=== PATIENT | male | born 1990 | race Caucasian/White ===

== ENCOUNTER 2024-01-18 21:44 | Emergency (ER) | payer OTHER, SELFPAY ==
[2024-01-18 21:55] VITALS: BP 128/85
[2024-01-18 22:21] LABS: % Basophils 0.5 % (0-2); % Eosinophils 3.7 % (0-6); % Immature Granulocytes 0.1 % (0-0.5); % Monocytes 9.1 % (1.7-9.3); % Neutrophils 66.6 % (42.2-75.2); Absolute Eosinophils 0.3 10^3/uL (0-0.7); Absolute Lymphocytes 1.7 10^3/uL (1.2-3.4); Absolute Monocytes 0.8 10^3/uL (0.1-0.6); Absolute Neutrophils 5.5 10^3/uL (1.4-6.5); Hematocrit 40.8 % (39.0-52.0); Hemoglobin 14.1 g/dL (13.0-18.0); Mean Corp Hgb Conc. 34.6 g/dL (33.0-37.0); Mean Corpuscular Hgb 29.6 pg (27.0-31.0); Mean Corpuscular Volume 85.7 fL (80.0-94.0); Mean Platelet Volume 9.8 fL (7.4-10.4); Nucleated Red Blood Cells % 0 % (-); Platelet Count 173 10^3/uL (130-400); Red Blood Cell Count 4.76 10^6/uL (4.70-6.10); White Blood Cell Count 8.3 10^3/uL (4.8-10.8)
[2024-01-18 22:34] LABS: ALT (SGPT) 30 U/L (0-50); AST (SGOT) 35 U/L (17-59); Albumin 4.4 g/dl (3.5-5.0); Alkaline Phosphatase 75 U/L (38-126); Blood Urea Nitrogen 32 mg/dl (9-20); Calcium 9.8 mg/dl (8.4-10.2); Carbon Dioxide 25 mmol/L (22-30); Chloride 103 mmol/L (98-107); Glucose 107 mg/dl (70-99); Potassium 3.9 mmol/L (3.5-5.1); Sodium 137 mmol/L (135-145); Total Bilirubin 0.5 mg/dl (0.2-1.3); eGFR > 60.00
[2024-01-18 22:36] LABS: Total Protein 7.3 g/dl (6.3-8.2)
[2024-01-18 23:04] LABS: TSH Reflex To Free T4 4.32 uIU/ml (0.47-4.68)
[2024-01-18 23:07] VITALS: BP 120/77
[2024-01-19] VITALS: BP 106/74
--- NOTE | 2024-01-19 00:23 | ED.GENMED ---
History of Present Illness
<MIRIAM Milan - Last Filed: 01/19/24 02:00>
General
Chief Complaint: Heart Rate Problem
Source: patient
Exam Limitations: none
Time Seen by Provider: 01/19/24 00:12
Nursing documentation reviewed up to this point in time: agreed with
Travel History
Have you had any contact with someone who has COVID-19?: No
Do you have any symptoms of coronavirus? Fever > 100 degrees, chills, cough, shortness of breath, sore throat, loss of taste or smell, muscle aches, or headache?: No
History of Present Illness
History of Present Illness:
This is a 33 year old male with no significant PMH who presents to the ED c/o his heart racing x couple hours. Pt states he was sitting down eating dinner when he felt like his heart was racing. When he checked, his heart rate was ranging between
140-160 bpm. Pt states the feeling lasted for about 25 minutes before resolving for 10 minutes and then starting again. He states his heart kept racing intermittently for a couple of hours before resolving 2 hours ago. He had one episode of sweating
as well. He has never felt like this before and denies any recent stressors or anxiety that would trigger it. He denies any CP, SOB, fever, chills, dizziness, lightheadedness, n/v, abdominal pain, sore throat, or congestion.
Pt drinks alcohol occasionally and denies any drug or tobacco use. He denies any alcohol consumption today. Pt denies any cardiac or thyroid history. He has a family hx of DM and HTN and denies any family hx of CAD.
Past History
<MIRIAM Milan - Last Filed: 01/19/24 02:00>
Past History
ED Past Medical History: None
ED Past Surgical History: None
Patient has exhibited threatening behavior?: No
Social History
Tobacco: Non-smoker
Alcohol: Occasional
Drug: None
Family History
Family History: Diabetes and Hypertension; Negative CAD
Review of Systems
<Kelly MIRIAM Lomas - Last Filed: 01/19/24 02:00>
Review of Systems
Allergies reviewed?: Yes
All Other Systems: ROS reviewed and negative except as documented in HPI and ROS
Constitutional: Reports no symptoms; Denies fever or chills
EENT: Reports no symptoms; Denies sore throat
Respiratory: Reports no symptoms; Denies trouble breathing
Cardiac: Reports diaphoresis and palpitations; Denies chest pain
ABD/GI: Reports no symptoms; Denies abdominal pain, nausea or vomiting
: Reports no symptoms
Musculoskeletal: Reports no symptoms
Skin: Reports no symptoms
Neurological: Reports no symptoms; Denies dizzy
Psychiatric: Reports no symptoms; Denies anxiety
Phy Exam
<MIRIAM Milan - Last Filed: 01/19/24 02:00>
General Physical Exam
General Presentation: well appearing, no apparent distress and other (patient is comfortable and resting in bed. HR is within normal range)
General age: appears stated age
General Skin: warm and dry
General Habitus: normal
General Mental: alert
General Hydration: appears well hydrated
ENT Exam
ENT Exam: pharynx normal, neck supple, normocephalic and swallowing well
Eye Exam
Eye Exam: PERRL
Cardiovascular Exam
Cardiovascular Exam: regular rate/rhythm, no edema, no murmur and normal peripheral pulses
Heart Sounds: normal
Pulmonary Exam
Pulmonary Exam: lungs clear, no respiratory distress, no rales, no crackles, no rhonchi, no wheezing and no cough
Gastrointestinal Exam
Gastrointestinal Exam: normal bowel sounds, non tender, soft and non distended
Neurological Exam
Neurological Exam: alert and oriented x3
Musculoskeletal Exam
Musculoskeletal Exam: full ROM and no edema
Skin Exam
Skin Exam: normal color and warm/dry
Psychiatric Exam
Psychiatric Exam: normal mood/affect
Course
<MIRIAM Milan - Last Filed: 01/19/24 02:00>
Orders/Labs/Results
Orders:
Orders
01/18/24 22:00
Electrocardiogram (*1) Urgent
Reason for Study: Tachycardia
EKG- Treatment ONCE
01/18/24 22:10
CMP [Comprehensive Metabolic Panel] Urgent
Complete Blood Count/With Diff Urgent
TSH Reflex To Free T4 Urgent
Abnormal Lab Results
01/18/24
22:10
Absolute Monos (auto) 0.8 H 10^3/uL
(0.1-0.6)
Lymphocytes % 20.0 L %
(20.5-51.1)
BUN 32 H mg/dl
(9-20)
Glucose 107 H mg/dl
(70-99)
01/18/24 22:10
01/18/24 22:10
Vital Signs
Initial and Last Documented VS:
Initial Vital Signs
Temp Pulse Resp BP Pulse Ox
98.7 F 91 18 128/85 99
01/18/24 21:55 01/18/24 21:55 01/18/24 21:55 01/18/24 21:55 01/18/24 21:55
Last Documented Vital Signs
Temp Pulse Resp BP Pulse Ox
98.7 F 67 17 112/72 97
01/18/24 21:55 01/19/24 01:30 01/19/24 01:30 01/19/24 01:00 01/19/24 01:30
<Sarkis Wilkerson DO - Last Filed: 01/19/24 01:53>
Orders/Labs/Results
Orders:
Orders
01/18/24 22:00
Electrocardiogram (*1) Urgent
Reason for Study: Tachycardia
EKG- Treatment ONCE
01/18/24 22:10
CMP [Comprehensive Metabolic Panel] Urgent
Complete Blood Count/With Diff Urgent
TSH Reflex To Free T4 Urgent
Abnormal Lab Results
01/18/24
22:10
Absolute Monos (auto) 0.8 H 10^3/uL
(0.1-0.6)
Lymphocytes % 20.0 L %
(20.5-51.1)
BUN 32 H mg/dl
(9-20)
Glucose 107 H mg/dl
(70-99)
01/18/24 22:10
01/18/24 22:10
Vital Signs
Initial and Last Documented VS:
Initial Vital Signs
Temp Pulse Resp BP Pulse Ox
98.7 F 91 18 128/85 99
01/18/24 21:55 01/18/24 21:55 01/18/24 21:55 01/18/24 21:55 01/18/24 21:55
Last Documented Vital Signs
Temp Pulse Resp BP Pulse Ox
98.7 F 67 17 112/72 97
01/18/24 21:55 01/19/24 01:30 01/19/24 01:30 01/19/24 01:00 01/19/24 01:30
<MIRIAM Milan - Last Filed: 01/19/24 02:00>
*Critical Care Note
Total Time (30-74mins, 75-104mins- exclusive of procedures): Not Applicable
ED Attending Note
<MIRIAM Milan - Last Filed: 01/19/24 02:00>
-
Portions of this chart may have been created with voice recognition software.� Occasional wrong word or��sound alike� substitutions may have occurred due to the inherent limitations of voice recognition software.
<DO Justo Menjivar Last Filed: 01/19/24 01:53>
ED Attending Note
Patient seen and examined by attending physician: Yes
I performed the substantive portion of visit, reviewed & personally made and approve the management plan that is documented in note by myself or KATHY.: Yes
ED Attending Note:
Pleasant 33-year-old male that presents with palpitations. He states that he has had palpitations in the past but today, approximately several hours prior to arrival he states that he felt his heart was racing. He states that his heart rate was
between 140 and 160 bpm. He reported several episodes lasting 25 minutes at a time. He states that this was different from previous palpitations. Patient works as a law enforcement officer. He denies any increased caffeine or decreased sleep. He reports
no dietary changes. He states that he is not under stress. He does not do drugs, drinks alcohol only sporadically and does not smoke. He denies chest pain. Patient was seen in conjunction with the PA student. I have reviewed and agree with the
history and treatment plan presented. On my independent physical exam, patient is awake, alert, and oriented x3, no acute distress. Heart is regular rate and rhythm without murmurs rubs or gallops present. Lungs are clear to auscultation
bilaterally without wheezes rales or rhonchi present. Moves all 4 extremities. Skin is warm and dry. Affect is normal. Patient is conversant. He does follow-up with a family doctor in [place].
Patient to be discharged home. Will follow-up with his family doctor. I will provide cardiology information should he want to follow-up with cards.
Discharge Plan
Departure
Patient Disposition: Home (Routine Discharge)
Date of Disposition: 01/19/24
Time of Disposition: 01:51
Patient with high blood pressure during this ER visit?: No
Condition: Good
Discharge Problem:
Palpitations
Instructions: Palpitations (DC)
Referrals:
[facility] [Provider Group] - As needed
Nael Og DO [Family Provider] -
Activity Restrictions/Additional Instructions:
It was a pleasure meeting you and taking part in your care. We hope for your continued healing and wellness.
Please read discharge instructions in their entirety. However, they are for general education and may not describe your exact diagnosis at discharge. Information on your ER visit and medical conditions were discussed with you along with appropriate
follow up information...
If indicated, please take your medications as instructed and indicated on discharge paperwork.
Please schedule a follow up appointment as directed. Call to schedule an appointment
Please return to the emergency department with ANY change in, persisting, or worsening of symptoms. If any of your symptoms do not improve, or persist, or become more severe within 6-12 hours, please return to the emergency department for further
care.
Please return to the emergency department if you develop a headache, neck pain/stiffness, fever greater than 100.4F, chest pain, shortness of breath, persistent nausea, vomiting, slurred speech, difficulty walking, numbness/tingling, weakness, signs
of infection or any other symptoms that are worrisome to you.
If you have any questions or concerns please do not hesitate to call the Hospital at or E-mail me directly at [email or web address]
Interventions
Interventions:
*Risk Screen - Suicide Last Done: 01/18/24 21:55
*General Assessment Last Done: 01/18/24 21:55
*Neglect/Abuse Screening Last Done: 01/18/24 21:55
ED- Fall Risk Assessment Last Done: 01/18/24 21:55
*ED COVID-19 Vaccine History Last Done: 01/18/24 21:55
*Nursing Disposition Last Done: 01/19/24 01:52
ED- Cardiac Assessment Last Done: 01/18/24 23:15
ED- Pulmonary Assessment Last Done: 01/18/24 23:15
Discharge Date and Time
Discharge Date/Time: 01/19/24 01:56
[2024-01-19 01:00] VITALS: BP 112/72
== END 2024-01-19 01:56 | disposition home or self-care (01) ==
LOC: EMR 21:44
PROVIDERS: Emergency Medicine; EMERGENCY PHYSICIAN Student in an Organized Health Care Education/Training Program; FAMILY PHYSICIAN Family Medicine
DX: R00.2 Palpitations (principal); I10 Essential (primary) hypertension; E11.9 Type 2 diabetes mellitus without complications
CPT/HCPCS: 99284; 80053; 84443; 85025; 93005